=== PATIENT | male | born 1975 | race Caucasian/White ===

== ENCOUNTER 2016-09-28 13:04 | Emergency (ER) | payer SELFPAY ==
[~2016-09-28 13:04] MED LIST: ACULAR10 ML OP; BACLOFEN10 MG PO; BACTRIM DS TABL1 TA1 PO; BACTRIM DS TABL1 TA2; CIPRO PO; CLEOCIN HCL300 M1; DAKIN'S MODIF1000 ML EXT; DARVOCET-N 1001 TAB PO; FLEXERIL PO; KEFLEX PO; KEFLEX500 M1; KEFLEX500 MG PO; LEXAPRO PO; LODINE PO; LORTAB 5/500 TA1 TA1 PO; LORTAB 5/500 TA1 TA2; LOTRISONE CREAM45 GM TOP; NAPROSYN500 MG PO; NAPROXEN PO; NO MEDICATIONS; NORCO1 TAB 10/3; NORFLEX100 M1 PO; PERCOCET 10/31 UDTA1 PO; POLYTRIM EYE DR10 ML OP; ROBAXIN500 MG PO; VICODIN 5/500 T1 TAB PO; VOLTAREN50 MG PO; VOLTAREN75 MG PO; ZYVOX PO; [UNRECOGNIZED DRUG - OTHER] OD
== END 2016-09-28 15:38 | disposition home or self-care (01) ==
LOC: CED 13:04
DX: L02.01 Cutaneous abscess of face (principal); K21.9 Gastro-esophageal reflux disease without esophagitis; F17.200 Nicotine dependence, unspecified, uncomplicated; Z88.6 Allergy status to analgesic agent
CPT/HCPCS: 10060; 96372; 99283

== ENCOUNTER 2017-02-20 10:43 | Emergency (ER) | payer SELFPAY ==
[~2017-02-20] VITALS: Ht 182.9 cm; Wt 111.1 kg
--- NOTE | ~2017-02-20 | CT71 ---
[facility] A Service of [facility] & [facility] RADIOLOGY TEXT RESULTS PATIENT: JUDD DE LOS SANTOS LOCATION: [facility] : 71 UNIT #: [id number] AGE: [address]: Jerrod Driscoll MD SEX: M ORDER DR: [id number] [facility] [address] [place], [place] [address] [id number] MR#: [id number] #: [id number] NAME: JUDD DE LOS SANTOS : 1975 SEX: M STUDY DATE/TIME: 02/20/2017 11:52 UNIT: [facility] ROOM: STUDY DESCRIPTION: CT Head Wo Contrast Attending Physician: Jerrod Driscoll M.D. Ordering Physician: [id number] Bria Driscoll Primary Care Physician: Thanh Bruce M.D. MEDICAL IMAGING REPORT This report is preliminary unless electronic signature is present EXAM Head CT 02/20 INDICATIONS Worst headache of life for the last 3 days. FINDINGS Axial images were obtained from base to vertex without contrast. Comparison made with 10/30/2006. This CT exam was performed with one or more of the following radiation dose reduction techniques: automatic control, adjustment of mA and/or kV according to patient size, and iterative reconstruction. Ventricular size and configuration are normal. There is no acute infarct or hemorrhage. There are no masses. There is no skull fracture. IMPRESSION Negative noncontrast head CT. Dictated by... Nito Becker Jr., M.D. THIS IS AN ELECTRONICALLY VERIFIED REPORT Nito Becker Jr., M.D. at 02/20/2017 4:50 PM DORIS/gregor TD: 02/20/2017 14:15 JOB #: [id number] MEDICAL IMAGING REPORT Page 1 of 1 COPY
[2017-02-20 12:01] LABS: ALBUMIN SERUM 4.3 g/dL (3.5-5.0); BILIRUBIN, DIRECT 0.1 mg/dL (0.0-0.2); BILIRUBIN,INDIRECT 0.5 mg/dL (0.0-0.9); BILIRUBIN,TOTAL 0.6 mg/dL (0.2-2.0); CALCIUM SERUM 9.3 mg/dL (8.4-10.2); CREATININE SERUM 1.1 mg/dL (0.6-1.4); GLOM FILT RATE Estimated 81.8 mL/min (>60); PROTEIN TOTAL SERUM 7.4 g/dL (6.0-8.3)
[2017-02-20 12:56] LABS: BASOPHIL% 0.3 % (0-2.5); EOSINOPHIL% 0.2 % (0.0-7.0); HEMATOCRIT 49.7 % (38.0-50.0); HEMOGLOBIN 16.4 gm/dL (13.0-16.0); LYMPHOCYTE# 1.6 X10e3 (1.0-3.5); MEAN CELL VOLUME 89.3 FL (83-96); MEAN CORPUSCULAR HEMOGLOBIN 29.5 PG (28-34); MEAN PLATELET VOLUME 8.7 FL (6.5-11.5); MONOCYTE# 0.7 X10e3 (0-1.0); MONOCYTE% 6.8 % (3.0-12.0); NEUTROPHIL# 7.7 X10e3 (1.5-7.1); NEUTROPHIL% 76.7 % (40-75); PLATELET COUNT 229 X10e3 (140-420); RED BLOOD COUNT 5.57 X10e (3.90-5.60); RED CELL DISTRIBUTION WIDTH 14.7 % (11.0-15.5); WHITE BLOOD COUNT 10.1 X10e3 (4.0-10.5)
[2017-02-20 12:59] LABS: DIFF IND NO
[2017-02-20 13:08] LABS: PROTHROMBIN TIME (PATIENT) 10.8 SECONDS (10.0-11.7)
== END 2017-02-20 14:39 | disposition home or self-care (01) ==
LOC: CED 10:43
PROVIDERS: Emergency Medicine
DX: R51 Headache (principal); K21.9 Gastro-esophageal reflux disease without esophagitis; F17.200 Nicotine dependence, unspecified, uncomplicated; Z88.5 Allergy status to narcotic agent; Z79.899 Other long term (current) drug therapy
CPT/HCPCS: 36415; 70450; 80048; 80076; 85025; 85610; 96361; 96374; 96375; 99284; J0780; J1100; J1200; J1885; J2405